=== PATIENT | female | born 1960 | race Caucasian/White ===

== ENCOUNTER 2019-08-26 14:45 | Emergency (ER) | payer OTHER ==
[2019-08-26] MEDS ORDERED: HYDROmorphone 1 MG/ML Syringe IVPUSH ONE (15:26)
[2019-08-26] MEDS ORDERED: Ondansetron 4 MG/2 ML SDV IVPUSH ONE (15:26)
--- NOTE | 2019-08-26 15:33 | EDM.PDOC ---
ED HPI GENERAL MEDICAL PROBLEM - General Chief Complaint: General Stated Complaint: S/P FALL, LOW BACK PAIN Time Seen by Provider: 08/26/19 15:10 Source of Information: Reports: Patient History Limitations: Reports: No Limitations - History of Present Illness INITIAL COMMENTS - FREE TEXT/NARRATIVE: Patient brought in on back board via ambulance after falling on the ice at [facility] at the end of her shift there. She has 8/10 pain in the low back and pain also in the right hip and mild in her neck. Denies LOC, vomiting, blurry vision, weakness or numbness but does have a vaguely numb-like feeling down the right leg. She doesn't take blood thinners. Lower Back Pain Score (Numeric/FACES): 8 - Related Data Allergies Allergy/AdvReac Type Severity Reaction Status Date / Time atorvastatin [From Lipitor] Allergy Muscle Verified 08/26/19 14:58 Aches morphine Allergy Nausea and Verified 08/26/19 14:58 Vomiting Penicillins Allergy Rash Verified 08/26/19 14:58 rosuvastatin [From Crestor] Allergy Itching Verified 08/26/19 14:58 Home Meds: Home Meds PHENobarbitaL [Phenobarbital] 100 mg PO BEDTIME 08/26/19 [History] Social & Family History - Tobacco Use Smoking Status *Q: Former Smoker Used Tobacco, but Quit: Yes Month/Year Tobacco Last Used: quit 3 yrs. ago - Caffeine Use Caffeine Use: Reports: Coffee - Recreational Drug Use Recreational Drug Use: No ED ROS GENERAL - Review of Systems Review Of Systems: See Below Constitutional: Denies: Fever, Chills, Weakness HEENT: Denies: Throat Pain, Vision Change Respiratory: Denies: Shortness of Breath, Cough Cardiovascular: Denies: Chest Pain, Lightheadedness, Syncope Endocrine: Denies: Fatigue GI/Abdominal: Denies: Abdominal Pain, Diarrhea, Vomiting : Reports: No Symptoms Musculoskeletal: Reports: Neck Pain, Back Pain, Leg Pain. Denies: Shoulder Pain , Arm Pain, Foot Pain Skin: Reports: No Symptoms Neurological: Denies: Confusion, Dizziness, Seizure, Syncope, Trouble Speaking, Difficulty Walking Psychiatric: Denies: Agitation, Anxiety, Confusion ED EXAM, GENERAL - Physical Exam Exam: See Below Exam Limited By: No Limitations General Appearance: Alert, WD/WN, No Apparent Distress Eye Exam: Bilateral Eye: EOMI, Normal Inspection, PERRL Ears: Normal External Exam, Normal Canal, Hearing Grossly Normal, Normal TMs Nose: Normal Inspection, No Blood Throat/Mouth: Normal Inspection, Normal Lips, Normal Voice, No Airway Compromise Head: Atraumatic, Normocephalic Neck: Supple, Tender Midline (mid-cervical). No: Tender Lateral Respiratory/Chest: No Respiratory Distress, Lungs Clear, Normal Breath Sounds, Chest Non-Tender Cardiovascular: Normal Peripheral Pulses, Regular Rate, Rhythm, No Murmur Peripheral Pulses: 2+: Carotid (L), Carotid (R), Radial (L), Radial (R) GI/Abdominal: Normal Bowel Sounds, Soft, Non-Tender, No Organomegaly Extremities: Other (pain with slight roll of right hip and tender to palpation of anterior and lateral hip. No shortening or external rotation. Normal plantar and dorsiflexion bilat. Normal hand virtual recruiter/extension and UE ROM. ) Neurological: Alert, Oriented, CN II-XII Intact, Normal Cognition, No Motor/ Sensory Deficits (Distal CMS, EHL, FHL intact.) Psychiatric: Normal Affect, Normal Mood Skin Exam: Warm, Dry, Intact, Normal Color, No Rash Course - Vital Signs Last Recorded V/S: Last Vital Signs Temp 97.2 F 08/26/19 17:28 Pulse 64 08/26/19 17:28 Resp 20 08/26/19 17:28 BP 129/88 08/26/19 17:28 Pulse Ox 93 L 08/26/19 17:28 - Orders/Labs/Meds Meds: Medications Discontinued Medications Generic Name Dose Route Start Last Admin Trade Name [place] PRN Reason Stop Dose Admin Cyclobenzaprine HCl 20 mg 08/26/19 17:35 Flexeril PO 08/26/19 17:36 ONETIME ONE Hydromorphone HCl 1 mg 08/26/19 15:26 08/26/19 15:30 Dilaudid IVPUSH 08/26/19 15:27 1 mg ONETIME ONE Administration Ondansetron HCl 4 mg 08/26/19 15:26 08/26/19 15:30 Zofran IVPUSH 08/26/19 15:27 4 mg ONETIME ONE Administration - Re-Assessments/Exams Free Text/Narrative Re-Assessment/Exam: 08/26/19 17:09 Pain is gone. Waiting on CT reports. 08/26/19 17:39 [address]s show no evidence of acute pathology in head, neck, lumbar spine, pelvis or right hip. Patient is feeling much better. Re-exam shows she can move right leg/hip normally without pain. She sits and stands okay. Discussed findings and treatment plan with patient and she is discharged to home in stable condition. Departure - Departure Time of Disposition: 17:47 Disposition: Home, Self-Care 01 Condition: Good Clinical Impression: Fall due to ice or snow Qualifiers: Encounter type: initial encounter Qualified Code(s): W00.9XXA - Unspecified fall due to ice and snow, initial encounter Low back pain Qualifiers: Chronicity: acute Back pain laterality: unspecified Sciatica presence: without sciatica Qualified Code(s): M54.5 - Low back pain - Discharge Information Referrals: Roselia Castillo PA-C [Primary Care Provider] - Forms: ED Department Discharge, ED Return to Work/School Form Additional Instructions: 1. Drink 8 cups of water daily. 2. You can use Tylenol or Ibuprofen 400-600 mg for pain control when needed. 3. Use the Flexeril as needed for muscle spasms but no driving then for 8 hours. 4. Follow up with your PCP if worsening, or not improving in 4-5 days.
[2019-08-26] MEDS ORDERED: Cyclobenzaprine 10 MG Tab PO ONE (17:35)
== END 2019-08-26 17:50 | disposition home or self-care (01) ==
LOC: KA.ED 14:45
DX: M54.5 Low back pain (principal); Z87.891 Personal history of nicotine dependence; Z88.8 Allergy status to other drugs, medicaments and biological substances; Z88.5 Allergy status to narcotic agent; Z88.0 Allergy status to penicillin; W00.9XXA Unspecified fall due to ice and snow, initial encounter
CPT/HCPCS: 70450; 72125; 72131; 72170; 96374; 96375; 99284-25; A9270-GY; J1170; J2405

== ENCOUNTER 2020-08-03 22:35 | Emergency (ER) | payer BC, OTHER ==
[2020-08-03] MEDS ORDERED: Sodium Chloride 0.9% 10 ML Syringe FLUSH PRN (22:54)
[2020-08-03] MEDS ORDERED: Dexamethasone 4 MG/ML SDV IVPUSH ONE (23:28)
[2020-08-03] MEDS ORDERED: Sodium Chloride 0.9% 1,000 ML IV ONE (23:28)
--- NOTE | 2020-08-03 23:38 | EDM.PDOC ---
ED HPI GENERAL MEDICAL PROBLEM - General Chief Complaint: General Stated Complaint: Covid positive symptoms Time Seen by Provider: 08/03/20 23:15 Source of Information: Reports: Patient History Limitations: Reports: No Limitations - History of Present Illness INITIAL COMMENTS - FREE TEXT/NARRATIVE: Patient presents with mild fever, decreased appetite, loss of taste, diarrhea, d ry cough, shortness of breath. This started 5 days ago in the evening. Earlier that day she had been tested for Covid at work routinely. She got the result a couple days ago that she is positive. She also tells me that two weeks ago she had bronchitis and took a week of prednisone. She hasn't been drinking much water. Bilateral Chest Pain Score (Numeric/FACES): 7 - Related Data Allergies Allergy/AdvReac Type Severity Reaction Status Date / Time atorvastatin [From Lipitor] Allergy Muscle Verified 08/03/20 22:45 Aches cefdinir [From Omnicef] Allergy Stomach Verified 08/03/20 22:45 Upset ciprofloxacin Allergy FEELS LIKE Verified 08/03/20 22:45 GETTING STUNG BY BEES morphine Allergy Nausea and Verified 08/03/20 22:45 Vomiting Penicillins Allergy Rash Verified 08/03/20 22:45 rosuvastatin [From Crestor] Allergy Itching Verified 08/03/20 22:45 Gexqgsf-Oos-Dwf Reductase Allergy CRAMPS/ Verified 08/03/20 22:45 Inhibitor Home Meds: Home Meds Ibuprofen 800 mg PO BID PRN 05/21/14 [History] [place]-3S/DHA/Epa/Fish Oil/D3 [Fish Oil + D3 Softgel] 1 each PO BID 05/21/14 [History] Rup Rub 1 dose TOP BID PRN 05/21/14 [History] Ascorbate Calcium [Vitamin C] 500 mg PO DAILY 08/23/15 [History] Cholecalciferol (Vitamin D3) [Vitamin D3] 1,000 units PO DAILY 08/23/15 [History] Cyanocobalamin (Vitamin B12) [Vitamin B12] 1,000 mcg PO DAILY 08/23/15 [History] PHENobarbitaL [Phenobarbital] 100 mg PO BEDTIME 03/14/16 [History] Aspirin [Halfprin] 81 mg PO BRK 04/02/16 [History] Evolocumab [Repatha Sureclick] 140 mg SQ Q14D 04/02/16 [History] Pyridoxine HCl (Vitamin B6) [Vitamin B-6] 50 mg PO DAILY 04/02/16 [History] Estrogens, Conjugated [Premarin Vaginal Crm] 0.5 gm VAG Q30D 04/05/16 [History] PHENobarbitaL [Phenobarbital] 100 mg PO BEDTIME 08/26/19 [History] Past Medical History Cardiovascular History: Reports: High Cholesterol Gastrointestinal History: Reports: Other (See Below) Other Gastrointestinal History: beloating and gas [employer] WORK[employer] History: Reports: Fibroids Musculoskeletal History: Reports: Osteoarthritis Neurological History: Reports: Seizure Psychiatric History: Reports: Anxiety - Infectious Disease History Infectious Disease History: Reports: Chicken Pox, Measles, Mumps, Shingles - Past Surgical History GI Surgical History: Reports: Appendectomy, Cholecystectomy Female Surgical History: Reports: Hysterectomy Social & Family History - Family History Cardiac: Reports: SD Endocrine/Metabolic: Reports: Diabetes, type II - Caffeine Use Caffeine Use: Reports: Coffee - Living Situation & Occupation Occupation: Employed ED ROS GENERAL - Review of Systems Review Of Systems: See Below Constitutional: Reports: Fever, Chills, Weakness, Fatigue HEENT: Denies: Ear Pain, Throat Pain, Vision Change Respiratory: Reports: Shortness of Breath, Cough. Denies: Sputum Cardiovascular: Denies: Chest Pain, Syncope GI/Abdominal: Reports: Abdominal Pain (suprapubic), Diarrhea. Denies: Vomiting : Reports: Dysuria Musculoskeletal: Reports: No Symptoms Skin: Denies: Cyanosis, Jaundice, Mottled, Pallor, Diaphoresis Neurological: Denies: Confusion, Dizziness, Seizure, Syncope, Trouble Speaking, Difficulty Walking Psychiatric: Denies: Agitation, Anxiety ED EXAM, GENERAL - Physical Exam Exam: See Below Exam Limited By: No Limitations General Appearance: Alert, WD/WN, No Apparent Distress Eye Exam: Bilateral Eye: EOMI, Normal Inspection, PERRL Ears: Normal External Exam, Hearing Grossly Normal Nose: Normal Inspection, No Blood Throat/Mouth: Normal Inspection, Normal Lips, Normal Oropharynx, Normal Voice, No Airway Compromise Head: Atraumatic, Normocephalic Neck: Normal Inspection, Supple, Non-Tender, Full Range of Motion Respiratory/Chest: No Respiratory Distress, Lungs Clear, Normal Breath Sounds (mostly, with an occasional slight expiratory wheeze), No Accessory Muscle Use. No: Crackles, Rales, Rhonchi, Stridor Cardiovascular: Normal Peripheral Pulses, Regular Rate, Rhythm, No Edema, No Gallop, No JVD, No Murmur Peripheral Pulses: 2+: Carotid (L), Carotid (R), Radial (L), Radial (R), Posterior Tibial (L), Posterior Tibial (R) GI/Abdominal: Normal Bowel Sounds, Soft, No Organomegaly, No Distention, Tender (suprapubic). No: Guarding, Rigid Back Exam: Normal Inspection, Full Range of Motion. No: CVA Tenderness (L), CVA Tenderness (R) Extremities: Normal Inspection, Normal Range of Motion Neurological: Alert, Oriented, Normal Cognition, No Motor/Sensory Deficits Psychiatric: Normal Affect, Normal Mood Skin Exam: Warm, Dry, Intact, Normal Color, No Rash Course - Vital Signs Last Recorded V/S: Last Vital Signs Temp 97.8 F 08/03/20 22:38 Pulse 77 08/04/20 00:45 Resp 21 H 08/04/20 00:45 BP 112/77 08/04/20 00:45 Pulse Ox 91 L 08/04/20 00:45 - Orders/Labs/Meds Orders: Active Orders 24 hr Category Date Time Status Peripheral IV Care [RC] . DIRECTED Care 08/03/20 22:54 Active CXR [Chest 2V] [CR] Stat Exams 08/03/20 23:13 Ordered CULTURE URINE [RM] Stat Lab 08/04/20 01:02 Ordered Sodium Chloride 0.9% [Saline Flush] Med 08/03/20 22:54 Active 10 ml FLUSH Q8HR PRN Peripheral IV Insertion Adult [OM.PC] Routine Oth 08/03/20 22:54 Ordered Medication Orders Sodium Chloride (Saline Flush) 10 ml FLUSH Q8HR PRN PRN Reason: keep vein open Labs: Laboratory Tests 08/03/20 08/03/20 08/04/20 Range/Units 22:58 22:58 00:38 WBC 3.61 L (5.00-10.00) 10^3/uL RBC 4.83 (3.80-5.50) 10^6/uL Hgb 14.3 (12.0-16.0) g/dL Hct 42.1 (37.0-47.0) % MCV 87.2 (82.0-92.0) fL MCH 29.6 (27.0-31.0) pg MCHC 34.0 (32.0-36.0) g/dL RDW 12.2 (11.5-14.5) % Plt Count 161 (150-400) 10^3/uL MPV 10.7 H (7.4-10.4) fL Immature Gran % (Auto) 0.0 (0.0-5.0) % Neut % (Auto) 55.6 (50.0-70.0) % Lymph % (Auto) 32.7 (20.0-40.0) % [place] % (Auto) 11.1 H (2.0-8.0) % Eos % (Auto) 0.0 L (1.0-3.0) % Baso % (Auto) 0.6 (0.0-1.0) % Neut # (Auto) 2.01 L (2.50-7.00) 10^3/uL Lymph # (Auto) 1.18 (1.00-4.00) 10^3/uL [place] # (Auto) 0.40 (0.10-0.80) 10^3/uL Eos # (Auto) 0.00 L (0.10-0.30) 10^3/uL Baso # (Auto) 0.02 (0.00-0.10) 10^3/uL Immature Gran # (Auto) 0.00 (0.00-0.50) 10^3/uL Sodium 136 (136-145) mmol/L Potassium 4.0 (3.3-5.3) mmol/L Chloride 99 (98-115) mmol/L Carbon Dioxide 25.4 (21.0-32.0) mmol/L Anion Gap 15.6 H (5-15) mmol/L BUN 13 (6-25) mg/dL Creatinine 0.44 L (0.51-1.17) mg/dL Est Cr Clr Drug Dosing 143.36 mL/min Estimated GFR (MDRD) > 60 mL/min Glucose 132 H (75 - 99) mg/dL Calcium 8.7 (8.7-10.3) mg/dL Specimen Type Urinvoid Urine Color Yellow (YELLOW) Urine Appearance Slightly cloudy H (CLEAR) Urine pH 5.5 (5.0-9.0) Ur Specific [place] >= 1.030 (1.005-1.030) Urine Protein Trace H (NEGATIVE) mg/dL Urine Glucose (UA) Negative (NEGATIVE) mg/dL Urine Ketones Trace H (NEGATIVE) mg/dL Urine Occult Blood Negative (NEGATIVE) Urine Nitrite Negative (NEGATIVE) Urine Bilirubin Negative (NEGATIVE) Urine Urobilinogen 0.2 (0.2-1.0) E.U./dL Ur Leukocyte Esterase Trace H (NEGATIVE) Urine RBC 0-5 (0-5) /HPF Urine WBC 20-30 H (0-5) /HPF Ur Epithelial Cells Many H /LPF Urine Bacteria Moderate H (NONE TO FEW) /HPF Meds: Medications Generic Name Dose Route Start Last Admin Trade Name Freq PRN Reason Stop Dose Admin Sodium Chloride 10 ml 08/03/20 22:54 Saline Flush FLUSH Q8HR PRN keep vein open Discontinued Medications Generic Name Dose Route Start Last Admin Trade Name Freq PRN Reason Stop Dose Admin Dexamethasone 8 mg 08/03/20 23:28 08/03/20 23:43 Decadron IVPUSH 08/03/20 23:29 8 mg ONETIME ONE Administration Sodium Chloride 1,000 mls @ 999 mls/hr 08/03/20 23:28 08/03/20 23:34 Normal Saline IV 08/04/20 00:28 999 mls/hr .BOLUS ONE Administration Ondansetron HCl 4 mg 08/04/20 00:15 08/04/20 00:25 Zofran IVPUSH 08/04/20 00:16 4 mg ONETIME ONE Administration Trimethoprim/Sulfamethoxazole 1 tab 08/04/20 00:59 08/04/20 01:03 Septra Ds PO 08/04/20 01:00 1 tab ONETIME ONE Administration - Re-Assessments/Exams Free Text/Narrative Re-Assessment/Exam: 08/04/20 00:43 CXR and labs okay. Waiting on UA yet. Following Decadron sats are 95% on RA. Gave Zofran for nausea. Discussed steroid options with Izabela LAZO who advised Decadron 6 mg po for up to 10 days; should be okay for outpatient. Patient is feeling better. 08/04/20 01:05 Patient is doing well and feels ready to go home. Nausea is controlled which makes her feel a lot better. Sats are staying in mid-90s on RA. UA shows mild UTI. Discussed findings and treatment plan and will give first doses of meds here with Rxs she will get tomorrow at pharmacy. We discussed that she may only need the steroid for 5-7 days but can use it up to 10 if needed. Discharged to home in stable condition. Departure - Departure Time of Disposition: 01:02 Disposition: Home, Self-Care 01 Condition: Good Clinical Impression: 2019 novel coronavirus disease (COVID-19), Hypoxemia, Nausea alone UTI (urinary tract infection) Qualifiers: Urinary tract infection type: acute cystitis Hematuria presence: without hematuria Qualified Code(s): N30.00 - Acute cystitis without hematuria - Discharge Information Instructions: COVID-19 Frequently Asked Questions Referrals: Ailyn Cantu, GENER[employer]ARD[employer] SALESPERSON [Primary Care Provider] - Forms: ED Department Discharge Additional Instructions: Drink 8 cups of water daily. Take the medications as directed. Continue your quarantine as directed. Follow up with your PCP or return to ER as needed. Sepsis Event Note (ED) - Focused Exam Vital Signs: Vital Signs Temp Pulse Resp BP Pulse Ox 08/04/20 00:45 77 21 H 112/77 91 L 08/04/20 00:30 74 19 119/73 92 L 08/04/20 00:15 79 22 H 120/75 94 L 08/04/20 00:00 80 19 117/72 93 L 08/03/20 23:45 80 22 H 123/76 94 L 08/03/20 23:30 83 16 122/81 92 L 08/03/20 23:15 99 18 106/73 94 L 08/03/20 23:00 80 19 112/71 94 L 08/03/20 22:45 80 22 H 112/74 91 L 08/03/20 22:38 97.8 F 87 18 119/74 90 L - My Orders Last 24 Hours: My Active Orders 08/03/20 22:54 Peripheral IV Care [RC] . DIRECTED Sodium Chloride 0.9% [Saline Flush] 10 ml FLUSH Q8HR PRN Peripheral IV Insertion Adult [OM.PC] Routine 08/03/20 23:13 CXR [Chest 2V] [CR] Stat 08/04/20 01:02 CULTURE URINE [RM] Stat - Assessment/Plan Last 24 Hours: My Active Orders 08/03/20 22:54 Peripheral IV Care [RC] . DIRECTED Sodium Chloride 0.9% [Saline Flush] 10 ml FLUSH Q8HR PRN Peripheral IV Insertion Adult [OM.PC] Routine 08/03/20 23:13 CXR [Chest 2V] [CR] Stat 08/04/20 01:02 CULTURE URINE [RM] Stat
[2020-08-03 23:42] LABS: ANION GAP 15.6 mmol/L (5-15); CHLORIDE,CL 99 mmol/L (98-115); SODIUM,NA 136 mmol/L (136-145)
[2020-08-04] MEDS ORDERED: Ondansetron 4 MG/2 ML SDV IVPUSH ONE (00:15)
[2020-08-04] MEDS ORDERED: Sulfamethoxazole/Trimethoprim 800-160 MG Tab PO ONE (00:59)
--- NOTE | 2020-08-04 08:04 | CR ---
[id number] RAD/RAD Chest PA And Lateral EXAM: RAD Chest PA And Lateral CLINICAL DATA: VIRAL INFECTION COMPARISON: CORRELATION IS MADE WITH MARCH 14, 2016 FINDINGS: The lungs are clear. The cardiomediastinal contour is normal. The regional bones and soft tissues are unremarkable. IMPRESSION: NO ACUTE PROCESS. Marvel Zimmerman MD 08/04/20 0802 Thank you for allowing us to participate in the care of your patient.
== END 2020-08-04 01:15 | disposition home or self-care (01) ==
LOC: KA.ED 22:35
DX: U07.1 COVID-19 (principal); N30.00 Acute cystitis without hematuria; R09.02 Hypoxemia; Z88.1 Allergy status to other antibiotic agents; Z88.5 Allergy status to narcotic agent; Z88.0 Allergy status to penicillin; Z88.8 Allergy status to other drugs, medicaments and biological substances; Z90.49 Acquired absence of other specified parts of digestive tract; Z90.710 Acquired absence of both cervix and uterus; Z79.899 Other long term (current) drug therapy
CPT/HCPCS: 71046; 80048; 81001; 85025; 87086; 96374; 96375; 99284; 99285-25; A9270-GY; J1100; J2405; J7030

== ENCOUNTER 2021-08-24 18:13 | Emergency (ER) | payer BC ==
[2021-08-24] MEDS ORDERED: Sodium Chloride 0.9% 10 ML Syringe FLUSH PRN (18:33)
[2021-08-24] MEDS ORDERED: Metoprolol Tartrate 5 MG/5 ML SDV IVPUSH ONE (18:36)
--- NOTE | 2021-08-24 18:37 | EDM.PDOC ---
ED HPI GENERAL MEDICAL PROBLEM - General Chief Complaint: General Stated Complaint: HIGH BLOOD PRESSURE? Time Seen by Provider: 08/24/21 18:30 Source of Information: Reports: Patient History Limitations: Reports: No Limitations - History of Present Illness INITIAL COMMENTS - FREE TEXT/NARRATIVE: Venita, 61-year-old female, presents to the emergency department per pedis with hypertension complaints. She had taken Claritin this morning and did not feel quite right at which time when she was at the clinic for irrigation of her ears was noted to be mildly hypertension. 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 She then continued to stress and worry presenting to the emergency department for evaluation. She states significant stress anxiety may be playing part of this. After her treatment and reduction in pressure she does acknowledge that she is not on any antihypertensive treatment at any time but previously had been on an anxiolytic which she self stopped. Denies fever chills. Denies any causation other than the Claritin and anxiety for her blood pressure. Onset: Today - Related Data Allergies Allergy/AdvReac Type Severity Reaction Status Date / Time atorvastatin [From Lipitor] Allergy Muscle Verified 08/24/21 18:25 Aches cefdinir [From Omnicef] Allergy Stomach Verified 08/24/21 18:25 Upset ciprofloxacin Allergy FEELS LIKE Verified 08/24/21 18:25 GETTING STUNG BY BEES morphine Allergy Nausea and Verified 08/24/21 18:25 Vomiting Penicillins Allergy Rash Verified 08/24/21 18:25 rosuvastatin [From Crestor] Allergy Itching Verified 08/24/21 18:25 Yuptlzs-BSB-EuY Reductase Allergy CRAMPS/ Verified 08/24/21 18:25 Inhibitor [Rcvglpu-Epd-Vgw Reductase Inhibitor] Home Meds: Home Meds Ibuprofen 800 mg PO BID PRN 05/21/14 [History] [place]-3S/DHA/Epa/Fish Oil/D3 [Fish Oil + D3 Softgel] 1 each PO DAILY 05/21/14 [History] Ascorbate Calcium [Vitamin C] 500 mg PO DAILY 08/23/15 [History] Cyanocobalamin (Vitamin B12) [Vitamin B12] 1,000 mcg PO DAILY 08/23/15 [History] Aspirin [Halfprin] 81 mg PO BRK 04/02/16 [History] PHENobarbitaL [Phenobarbital] 100 mg PO BEDTIME 08/26/19 [History] Past Medical History HEENT History: Reports: Impaired Vision Other HEENT History: wears glasses Cardiovascular History: Reports: High Cholesterol Other Respiratory History: Covid positive 2019 Gastrointestinal History: Reports: Other (See Below) 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 HOME HEALTH History: Reports: Fibroids Musculoskeletal History: Reports: Osteoarthritis Neurological History: Reports: Seizure Psychiatric History: Reports: Anxiety Dermatologic History: Reports: Other (See Below) Other Dermatologic History: [place] planus - Infectious Disease History Infectious Disease History: Reports: Chicken Pox, Measles, Mumps, Shingles - Past Surgical History GI Surgical History: Reports: Appendectomy, Cholecystectomy Female Surgical History: Reports: Hysterectomy Social & Family History - Family History Family Medical History: No Pertinent Family History Cardiac: Reports: [place] Endocrine/Metabolic: Reports: Diabetes, type II - Caffeine Use Caffeine Use: Reports: Coffee - Living Situation & Occupation Occupation: Employed ED ROS GENERAL - Review of Systems Review Of Systems: Comprehensive ROS is negative, except as noted in HPI. ED EXAM, GENERAL - Physical Exam Exam: See Below Free Text/Narrative:: Alert, oriented somewhat anxious and distressed. HEENT is negative discharge or deformity with no cyanosis nor pallor noted. PERRLA no icterus no injection. [place] moist mucous membranes with no erythema. Neck soft supple no lymphadenopathy no JVD appreciated. Thorax is clear throughout with no wheezes no crackles. Cardiac is S1-S2 I do not appreciate murmur, nontachycardic. Abdomen is soft no flank pain. There is no significant edema to the lower extremities. #1 Interpretation EKG Date: 08/24/21 Time: 19:16 Rhythm: NSR Rate (Beats/Min): 58 [place]: Normal P-Wave: Present QRS: Normal ST-T: Normal QT: Normal Comparison: NA - No Prior EKG Course - Vital Signs Last Recorded V/S: Last Vital Signs Temp 97.4 F 08/24/21 18:27 Pulse 60 08/24/21 19:21 Resp 18 08/24/21 18:27 BP 126/83 08/24/21 19:21 Pulse Ox 95 08/24/21 18:27 - Orders/Labs/Meds Orders: Active Orders 24 hr Category Date Time Status Peripheral IV Insertion Adult [OM.PC] Stat Oth 08/24/21 18:33 Ordered EKG 12 Lead [EK] Stat Ther 08/24/21 18:34 Ordered Labs: Laboratory Tests 08/24/21 08/24/21 Range/Units 18:45 18:45 WBC 7.87 (5.00-10.00) 10^3/uL RBC 4.81 (3.80-5.50) 10^6/uL Hgb 14.3 (12.0-16.0) g/dL Hct 41.6 (37.0-47.0) % MCV 86.5 (82.0-92.0) fL MCH 29.7 (27.0-31.0) pg MCHC 34.4 (32.0-36.0) g/dL RDW 12.6 (11.5-14.5) % Plt Count 269 D (150-400) 10^3/uL MPV 9.8 (7.4-10.4) fL Immature Gran % (Auto) 0.0 (0.0-5.0) % Neut % (Auto) 44.1 L (50.0-70.0) % Lymph % (Auto) 44.6 H (20.0-40.0) % [place] % (Auto) 9.5 H (2.0-8.0) % Eos % (Auto) 1.3 (1.0-3.0) % Baso % (Auto) 0.5 (0.0-1.0) % Neut # (Auto) 3.47 (2.50-7.00) 10^3/uL Lymph # (Auto) 3.51 (1.00-4.00) 10^3/uL [place] # (Auto) 0.75 (0.10-0.80) 10^3/uL Eos # (Auto) 0.10 (0.10-0.30) 10^3/uL Baso # (Auto) 0.04 (0.00-0.10) 10^3/uL Immature Gran # (Auto) 0.00 (0.00-0.50) 10^3/uL Sodium 140 (136-145) mmol/L Potassium 3.6 (3.5-5.1) mmol/L Chloride 102 (98-107) mmol/L Carbon Dioxide 25.9 (21.0-32.0) mmol/L Anion Gap 15.7 H (5-15) mmol/L BUN 11 (7-18) mg/dL Creatinine 0.57 (0.51-1.17) mg/dL Est Cr Clr Drug Dosing 105.57 mL/min Estimated GFR (MDRD) > 60 mL/min Glucose 104 (70-140) mg/dL Calcium 8.5 L (8.7-10.3) mg/dL Total Bilirubin 0.3 (0.2-1.0) mg/dL AST 20 (15-37) U/L ALT 43 (14-63) U/L Alkaline Phosphatase 115 (46-116) U/L Total Protein 7.2 (6.4-8.2) g/dL Albumin 3.69 (3.40-5.00) g/dL Meds: Medications Discontinued Medications Generic Name Dose Route Start Last Admin Trade Name Freq PRN Reason Stop Dose Admin Metoprolol Tartrate 5 mg 08/24/21 18:36 08/24/21 18:54 Metoprolol Tartrate 5 Mg/5 Ml Sdv IVPUSH 08/24/21 18:37 2.5 mg ONETIME ONE Administration Sodium Chloride 10 ml 08/24/21 18:33 Sodium Chloride 0.9% 10 Ml Syringe FLUSH Q8HR PRN keep vein open Departure - Departure Time of Disposition: 19:48 Disposition: Home, Self-Care 01 Condition: Good Clinical Impression: Anxiety about health, Anxiety HTN (hypertension) Qualifiers: Hypertension type: unspecified Qualified Code(s): I10 - Essential (primary) hypertension - Discharge Information *PRESCRIPTION DRUG MONITORING PROGRAM REVIEWED*: Not Applicable *COPY OF PRESCRIPTION DRUG MONITORING REPORT IN PATIENT ROMARIO: Not Applicable Instructions: Managing Anxiety, Adult, Hypertension, Adult Referrals: Ailyn Cantu NP [Primary Care Provider] - Forms: ED Department Discharge Additional Instructions: Your blood pressure has come down nicely since we treated you with 2.5 mg Lopressor. Your EKG looks good with no evidence of any problems. You have no abnormal findings on your electrolytes or blood count. Please follow-up with your clinic tomorrow as you were directed to do for recheck of your blood pressure. Please discuss with them versus returning to antianxiety medication as they may not be aware you self stopped that medication. Continue all your medications as directed trying to maintain a heart healthy diet with good fluid intake specifically water daily. Avoiding salts and high fat foods. Follow-up as able to schedule and as needed. Sepsis Event Note (ED) - Focused Exam Vital Signs: Vital Signs Temp Pulse Pulse Resp BP BP Pulse Ox 08/24/21 19:21 60 126/83 08/24/21 19:06 60 129/87 08/24/21 19:04 60 130/87 08/24/21 18:59 62 126/86 08/24/21 18:54 69 69 131/88 131/88 08/24/21 18:37 143/95 H 08/24/21 18:27 97.4 F 83 18 150/102 H 95 - Problem List & Annotations (1) HTN (hypertension) SNOMED Code(s): 47277000 Code(s): I10 - ESSENTIAL (PRIMARY) HYPERTENSION Status: Acute Priority: High Qualifiers: Hypertension type: unspecified Qualified Code(s): I10 - Essential (primary) hypertension (2) Anxiety SNOMED Code(s): 28625434 Code(s): F41.9 - ANXIETY DISORDER, UNSPECIFIED Status: Acute (3) Anxiety about health SNOMED Code(s): 821447925 Code(s): F41.8 - OTHER SPECIFIED ANXIETY DISORDERS Status: Acute Priority: High - My Orders Last 24 Hours: My Active Orders 08/24/21 18:33 Peripheral IV Insertion Adult [OM.PC] Stat 08/24/21 18:34 EKG 12 Lead [EK] Stat - Assessment/Plan Last 24 Hours: My Active Orders 08/24/21 18:33 Peripheral IV Insertion Adult [OM.PC] Stat 08/24/21 18:34 EKG 12 Lead [EK] Stat Plan: Your blood pressure has come down nicely since we treated you with 2.5 mg Lopressor. Your EKG looks good with no evidence of any problems. You have no abnormal findings on your electrolytes or blood count. Please follow-up with your clinic tomorrow as you were directed to do for recheck of your blood pressure. Please discuss with them versus returning to antianxiety medication as they may not be aware you self stopped that medication. Continue all your medications as directed trying to maintain a heart healthy diet with good fluid intake specifically water daily. Avoiding salts and high fat foods. Follow-up as able to schedule and as needed.
[2021-08-24 19:21] LABS: ANION GAP 15.7 mmol/L (5-15); CHLORIDE,CL 102 mmol/L (98-107); SODIUM,NA 140 mmol/L (136-145)
== END 2021-08-24 20:00 | disposition home or self-care (01) ==
LOC: KA.ED 18:13
DX: I10 Essential (primary) hypertension (principal); F41.9 Anxiety disorder, unspecified; M19.90 Unspecified osteoarthritis, unspecified site; Z86.16 Personal history of COVID-19; Z88.8 Allergy status to other drugs, medicaments and biological substances; Z88.1 Allergy status to other antibiotic agents; Z88.5 Allergy status to narcotic agent; Z88.0 Allergy status to penicillin; Z79.82 Long term (current) use of aspirin; Z79.899 Other long term (current) drug therapy
CPT/HCPCS: 36415; 80053; 85025; 93010; 96374; 99283-25; 99284; J3490

== ENCOUNTER 2023-02-28 10:35 | Emergency (ER) | payer BC, MEDICARE ==
[2023-02-28] MEDS ORDERED: Lidocaine 1% 5 ML VIAL INJECT ONE (10:42)
[2023-02-28] MEDS ORDERED: Diphtheria,Pertussis(Acell),Tetanus Vaccine 0.5 ML Syringe IM ONE (10:42)
== END 2023-02-28 11:06 | disposition home or self-care (01) ==
LOC: KA.ED 10:35
DX: S61.411A Laceration without foreign body of right hand, initial encounter (principal); M19.90 Unspecified osteoarthritis, unspecified site; Z23 Encounter for immunization; Z86.16 Personal history of COVID-19; Z79.899 Other long term (current) drug therapy; Z88.1 Allergy status to other antibiotic agents; Z88.8 Allergy status to other drugs, medicaments and biological substances; Z88.5 Allergy status to narcotic agent; Z88.0 Allergy status to penicillin; W26.8XXA Contact with other sharp object(s), not elsewhere classified, initial encounter
CPT/HCPCS: 12001; 90471; 90715; 99282-25; J3490

== ENCOUNTER 2023-10-04 16:47 | Emergency (ER) | payer MEDICARE ==
[2023-10-04] MEDS ORDERED: Sodium Chloride 0.9% 10 ML Syringe FLUSH PRN (17:01)
[2023-10-04] MEDS: Sodium Chloride 0.9% 1,000 ML IV ONE (17:04)
[2023-10-04 17:08] LABS: BASOPHILS ABSOLUTE AUTO 0.06 10^3/uL (0.00-0.10); BASOPHILS PERCENT AUTO 0.6 % (0.0-1.0); EOSINOPHILS ABSOLUTE AUTO 0.16 10^3/uL (0.10-0.30); EOSINOPHILS PERCENT AUTO 1.6 % (1.0-3.0); HEMATOCRIT 42.5 % (37.0-47.0); HEMOGLOBIN 14.1 g/dL (12.0-16.0); IMMATURE GRAN ABSOLUTE AUTO 0.01 10^3/uL (0.00-0.50); IMMATURE GRAN PERCENT AUTO 0.1 % (0.0-5.0); LYMPHOCYTES ABSOLUTE AUTO 3.38 10^3/uL (1.00-4.00); LYMPHOCYTES PERCENT AUTO 34.1 % (20.0-40.0); MEAN CORPUSCULAR HEMOGLOBIN 29.6 pg (27.0-31.0); MEAN CORPUSCULAR HGB CONC 33.2 g/dL (32.0-36.0); MEAN CORPUSCULAR VOLUME 89.1 fL (82.0-92.0); MEAN PLATELET VOLUME 10.1 fL (7.4-10.4); MONOCYTES ABSOLUTE AUTO 0.72 10^3/uL (0.10-0.80); MONOCYTES PERCENT AUTO 7.3 % (2.0-8.0); NEUTROPHILS ABSOLUTE AUTO 5.59 10^3/uL (2.50-7.00); NEUTROPHILS PERCENT AUTO 56.3 % (50.0-70.0); PLATELET COUNT,PLT 267 10^3/uL (150-400); RED BLOOD CELL COUNT 4.77 10^6/uL (3.80-5.50); RED CELL DISTRIBUTION WIDTH 12.5 % (11.5-14.5); WHITE BLOOD CELL COUNT,WBC 9.92 10^3/uL (5.00-10.00)
[2023-10-04] MEDS: Sodium Chloride 0.9% 1,000 ML ONE (17:08)
[2023-10-04] MEDS: Ondansetron 4 MG/2 ML SDV ONE (17:08)
[2023-10-04] MEDS: Ondansetron 4 MG/2 ML SDV IVPUSH ONE (17:11)
[2023-10-04 17:25] LABS: ALANINE AMINOTRANSFERASE,ALT 43 U/L (14-63); ALBUMIN 4.09 g/dL (3.40-5.00); ALKALINE PHOSPHATASE 113 U/L (46-116); ANION GAP 10.8 mmol/L (5-15); ASPARTATE AMNIOTRANSFERASE,AST 23 U/L (15-37); BILIRUBIN TOTAL 0.3 mg/dL (0.2-1.0); BLOOD UREA NITROGEN,BUN 14 mg/dL (7-18); CALCIUM 8.9 mg/dL (8.7-10.3); CHLORIDE,CL 103 mmol/L (98-107); CREATININE 0.82 mg/dL (0.51-1.17); GLUCOSE RANDOM 106 mg/dL (70-140); POTASSIUM,K 3.8 mmol/L (3.5-5.1); PROTEIN TOTAL,TP 7.6 g/dL (6.4-8.2); SODIUM,NA 139 mmol/L (136-145)
[2023-10-04 17:26] LABS: ESTIMATED GFR 79 mL/min (>=60)
== END 2023-10-04 18:20 | disposition home or self-care (01) ==
LOC: KA.ED 16:47
DX: R55 Syncope and collapse (principal); H81.11 Benign paroxysmal vertigo, right ear; F41.1 Generalized anxiety disorder; M19.90 Unspecified osteoarthritis, unspecified site; E66.9 Obesity, unspecified; Z20.822 Contact with and (suspected) exposure to COVID-19; Z86.16 Personal history of COVID-19; Z79.82 Long term (current) use of aspirin; Z79.899 Other long term (current) drug therapy; Z88.0 Allergy status to penicillin; Z88.5 Allergy status to narcotic agent; Z88.8 Allergy status to other drugs, medicaments and biological substances; Z88.1 Allergy status to other antibiotic agents
CPT/HCPCS: 71045; 80053; 84484; 85025; 93010; 96361; 96374; 99284; 99284-25; J2405; J7030; U0002

== ENCOUNTER 2025-01-01 16:19 | Emergency (ER) | payer MEDICAID, MEDICARE ==
[2025-01-01] MEDS: Lidocaine/Epineph/Tetracaine 3 ML Syringe TOP ONE (16:27)
[2025-01-01] MEDS: Bacitracin/Neomycin/Polymyxin B Oint 28.4 GM Tube TOP ONE (16:50)
== END 2025-01-01 17:05 | disposition home or self-care (01) ==
LOC: KA.ED 16:19
DX: S01.112A Laceration without foreign body of left eyelid and periocular area, initial encounter (principal); S40.212A Abrasion of left shoulder, initial encounter; E78.00 Pure hypercholesterolemia, unspecified; Z88.1 Allergy status to other antibiotic agents; Z88.8 Allergy status to other drugs, medicaments and biological substances; Z88.5 Allergy status to narcotic agent; Z88.0 Allergy status to penicillin; Z79.82 Long term (current) use of aspirin; Z79.899 Other long term (current) drug therapy; W01.198A Fall on same level from slipping, tripping and stumbling with subsequent striking against other object, initial encounter; Y93.89 Activity, other specified
CPT/HCPCS: 12011; 99283; A9270